=== PATIENT | male | born 1940 | race Caucasian/White ===

== ENCOUNTER 2022-06-27 18:42 | Emergency (ER) | payer MEDICARE, BC ==
[~2022-06-27] VITALS: Ht 162.6 cm; Wt 81.8 kg
[2022-06-27] VITALS (8 sets, daily range): BP systolic 134–168; BP diastolic 49–65; PULSE 71–100; TEMP 97.1–98.3
[2022-06-27 19:23] LABS: BASO % 0.3 % (0.0-2.0); EOS # 0.5 K/mm3 (0.0-0.7); EOS % 8.8 % (0.0-4.0); GRAN # 3.7 K/mm3 (1.4-6.5); GRAN % 60.3 % (42.2-75.2); INR 1.1 (0.8-3.0); LYMPH # 1.3 K/mm3 (1.2-3.4); LYMPH % 21.9 % (20.0-51.0); MEAN CELL VOLUME 93 fl (80.0-100.0); MEAN CORPUSCULAR HGB CONC 31 g/dl (33.0-37.0); MEAN PLATELET VOLUME 12.8 fl (7.4-10.4); MONO # 0.5 K/mm3 (0.1-0.6); PLATELET COUNT 103 K/mm3 (130-400); PROTHROMBIN TIME 12.1 SECONDS (9.7-12.8); RED BLOOD COUNT 2.06 M/mm3 (4.20-5.60); REDCELL DISTRIBUTION WIDTH-CV 14.4 % (11.5-14.5)
[2022-06-27 19:27] LABS: HEMATOCRIT 19.1 % (42.0-52.0); MEAN CORPUSCULAR HEMOGLOBIN 29 pg (27-31)
[2022-06-27 19:42] LABS: ALBUMIN 3.6 gm/dL (3.4-4.8); BILIRUBIN,TOTAL 0.2 mg/dL (0.2-1.2); CALCIUM 9.1 mg/dL (8.4-10.2); CREATININE, serum 0.99 mg/dL (0.72-1.25); POTASSIUM 4.6 mmol/L (3.5-4.5); TOTAL PROTEIN 6.5 gm/dL (6.2-8.1)
[2022-06-27 19:48] LABS: TROPONIN-I 0.018 ng/mL (0.00-0.033)
== END 2022-06-27 23:47 | disposition home or self-care (01) ==
LOC: COL.ER 18:42
PROVIDERS: Family Medicine
DX: D64.9 Anemia, unspecified (principal)
CPT/HCPCS: P9016

== ENCOUNTER 2022-07-05 10:12 | Outpatient (RCR) | payer MEDICARE, BC ==
[2022-07-05] VITALS (10 sets, daily range): BP systolic 135–152; BP diastolic 51–85; PULSE 64–80; TEMP 97.4–98.5
[2022-07-05] MEDS ORDERED: ZOCOR 40MG40 MG PO (12:24)
[2022-07-05] MEDS ORDERED: LASIX 40MG TABL40 MG PO (12:24)
[2022-07-05] MEDS ORDERED: TRESIBA FL200 UNIT/1 SQ (12:25)
[2022-07-05] MEDS ORDERED: INSULIN LI100 UNIT/2 SQ (12:26)
[2022-07-05] MEDS ORDERED: CYMBALTA 30MG30 MG PO (12:27)
[2022-07-05] MEDS ORDERED: PROSCAR 5MG5 MG PO (12:27)
[2022-07-05] MEDS ORDERED: BENICAR 20MG TA20 MG PO (12:27)
[2022-07-05] MEDS ORDERED: FLOMAX 0.40.4 MG/CAP PO (12:28)
[2022-07-05] MEDS ORDERED: ZYLOPRIM 300MG300 MG PO (12:28)
[2022-07-05] MEDS ORDERED: ARICEPT 5MG PO (12:29)
[2022-07-05] MEDS ORDERED: LYRICA200 MG PO (12:31)
== END 2022-07-05 16:23 ==
LOC: EUO 10:12
DX: D50.8 Other iron deficiency anemias (principal)
CPT/HCPCS: J7050; P9016

== ENCOUNTER 2022-08-15 10:59 | Outpatient (RCR) | payer MEDICARE, BC ==
[2022-08-15] VITALS (10 sets, daily range): BP systolic 123–155; BP diastolic 44–85; PULSE 70–89; TEMP 97–98.5
[~2022-08-15] VITALS: Ht 162.6 cm; Wt 84.0 kg
[~2022-08-15 10:59] MED LIST: ARICEPT 5MG PO; BENICAR 20MG TA20 MG PO; CYMBALTA 30MG30 MG PO; FLOMAX 0.40.4 MG/CAP PO; INSULIN LI100 UNIT/2 SQ; LASIX 40MG TABL40 MG PO; LYRICA200 MG PO; PROSCAR 5MG5 MG PO; TRESIBA FL200 UNIT/1 SQ; ZOCOR 40MG40 MG PO; ZYLOPRIM 300MG300 MG PO
[2022-08-15] MEDS ORDERED: TYLENOL 500MG500 MG PO (11:34)
[2022-08-15] MEDS ORDERED: CENTRUM SILVER1 TA2 PO (11:55)
--- NOTE | 2022-08-15 13:53 | NUR ---
Report from Stacie Mcgee.
== END 2022-08-15 17:12 ==
LOC: EUO 10:59
DX: D50.8 Other iron deficiency anemias (principal)
CPT/HCPCS: J7050; P9016

== ENCOUNTER 2022-11-15 09:49 | Day surgery (SDC) | payer MEDICARE, BC ==
[~2022-11-15] VITALS: Ht 162.6 cm; Wt 95.6 kg
[~2022-11-15 09:49] MED LIST changes: +CENTRUM SILVER1 TA2 PO; +TYLENOL 500MG500 MG PO
[2022-11-15 11:03] VITALS: BP 140/59; PULSE 79; TEMP 98.1
[2022-11-15 12:55] VITALS: BP 159/68; PULSE 81; TEMP 98.4
--- NOTE | 2022-11-15 12:55 | NUR ---
PATIENT AMBULATED TO THE CHAIR WITH STANDBY ASSIST. PATIENT ALERT AND ORIENTED, DENIES PAIN AND NAUSEA. BREATHING REGULAR AND UNLABORED. SEE CHART FOR VITAL SIGNS. NURSE HANDOFF COMPLETED IN ROOM. PATIENT TRIED WATER AND SALTINES, NO DYSPHAGIA. PATIENT ALSO HAD ORANGE JUICE. PAM, DAUGHTER, PRESENT IN ROOM. CALL LIGHT IN REACH. MET WITH PATIENT AND DAUGHTER TO DISCUSS PROCEDURE.
[2022-11-15 13:15] VITALS: BP 171/69; PULSE 76
[2022-11-15 13:24] VITALS: BP 169/70; PULSE 75
[2022-11-15 13:35] VITALS: BP 165/69; PULSE 79
--- NOTE | 2022-11-15 13:35 | NUR ---
PATIENT ALERT AND ORIENTED, DENIES PAIN AND NAUSEA. DISCHARGE TEACHING COMPLETED WITH PRINTED EDUCATION SENT HOME WITH PATIENT. PATIENT AND DAUGHTER PAM VERBALIZED UNDERSTANDING OF TEACHING. IV REMOVED. PATIENT DISCHARGED HOME WITH PAM TRANSPORT.
== END 2022-11-15 13:45 | disposition home or self-care (01) ==
LOC: SDCO 09:49
DX: D12.0 Benign neoplasm of cecum (principal); D50.9 Iron deficiency anemia, unspecified; Z86.16 Personal history of COVID-19; Z87.891 Personal history of nicotine dependence
CPT/HCPCS: J2704

== ENCOUNTER 2023-12-14 18:28 | Inpatient (IN) | payer MEDICARE, BC ==
[~2023-12-14] VITALS: Ht 162.6 cm; Wt 85.9 kg
[~2023-12-14 18:28] MED LIST changes: +ASPIRIN E.C. 8181 MG PO; +BENICAR5 MG PO; +HUMALOG PEN100 U/ML SQ; +PROVENTIL0.09 MG/A1 IH; +RT ADVAIR HFA 1112 G IH; +TRESIBA100 UNIT/1 SQ; +ZETIA 10MG TAB10 MG PO
[2023-12-14 19:00] LABS: BASO % 0.7 % (0.0-2.0); EOS # 0.4 K/mm3 (0.0-0.7); EOS % 5.7 % (0.0-4.0); GRAN # 4.4 K/mm3 (1.4-6.5); GRAN % 70.8 % (42.2-75.2); LYMPH # 0.9 K/mm3 (1.2-3.4); LYMPH % 15.3 % (20.0-51.0); MEAN CELL VOLUME 109 fl (80.0-100.0); MEAN CORPUSCULAR HGB CONC 32 g/dl (33.0-37.0); MEAN PLATELET VOLUME 11.7 fl (7.4-10.4); MONO # 0.4 K/mm3 (0.1-0.6); MONO % 6.7 % (1.7-9.3); PLATELET COUNT 117 K/mm3 (130-400); RED BLOOD COUNT 1.84 M/mm3 (4.20-5.60); REDCELL DISTRIBUTION WIDTH-CV 15.6 % (11.5-14.5)
[2023-12-14 19:05] LABS: HEMATOCRIT 20.1 % (42.0-52.0); HEMOGLOBIN 6.4 g/dl (13.5-18.0); MEAN CORPUSCULAR HEMOGLOBIN 35 pg (27-31)
[2023-12-14 19:21] LABS: ALBUMIN 3.3 gm/dL (3.4-4.8); BILIRUBIN,TOTAL 0.2 mg/dL (0.2-1.2); CALCIUM 8.9 mg/dL (8.4-10.2); CREATININE, serum 1.09 mg/dL (0.72-1.25); POTASSIUM 5.2 mmol/L (3.5-4.5); TOTAL PROTEIN 5.9 gm/dL (6.2-8.1)
[2023-12-14] MEDS ORDERED: Acetaminophen 325 MG TAB PO PRN (20:30)
[2023-12-14] MEDS ORDERED: Ondansetron 4 MG/2 ML VIAL IV PRN (20:30)
[2023-12-14] MEDS ORDERED: Pantoprazole 80 MG in NS 100 ML IV ONE (20:30)
[2023-12-14] MEDS ORDERED: Dextrose 50% Water 25 GM/50 ML SYRINGE IV PRN (20:45)
[2023-12-14] MEDS ORDERED: Dextrose (Glucose) 15 GM (4 x 3.75 GM) Chewable TABLET PACK PO PRN (20:45)
[2023-12-14] MEDS ORDERED: Glucagon 1 MG VIAL IM PRN (20:45)
[2023-12-14 21:00] VITALS: BP_SYST 134
[2023-12-14] MEDS ORDERED: Insulin Aspart (NovoLOG) SQ SCH (21:00)
[2023-12-14 21:22] VITALS: BP 156/54; PULSE 77; TEMP 97.9
[2023-12-14 21:36] VITALS: BP 167/58; PULSE 78; TEMP 97.8
[2023-12-14 21:39] VITALS: BP 161/60; PULSE 79; TEMP 97.9
[2023-12-14 22:37] VITALS: BP 183/56; PULSE 83; TEMP 97.7
[2023-12-14 22:46] VITALS: BP 188/58; PULSE 75; TEMP 97.9
[2023-12-15] VITALS (24 sets, daily range): BP systolic 134–176; BP diastolic 30–82; PULSE 73–92; TEMP 97.6–98.6
[2023-12-15] MEDS ORDERED: OSTEO-BI-FLEX 21 TAB PO (01:17)
--- NOTE | 2023-12-15 01:51 | NUR ---
Patient arrived to the floor at 0 from ED per cart with ED nurse Timothy, with ongoing blood transfusion that started at 2124 infusing well on LAC and on his right forearm with ongoing protonix, admission assessment and intake done, medrec reviewed. First unit of blood ended at 2244. Spoken to Shawn and made him aware that first unit was done and he wanted to transfuse the 2nd unit at midnight for 4 hours and give the lasix thereafter. Shawn was also aware that patient's BP is high and had 6 beats of vtach at 0026, no further orders received.
[2023-12-15] MEDS ORDERED: Furosemide 40 MG/4 ML VIAL IV ONE (04:00)
[2023-12-15 06:26] LABS: MEAN CORPUSCULAR HGB CONC 34 g/dl (33.0-37.0); MEAN PLATELET VOLUME 11.6 fl (7.4-10.4); PLATELET COUNT 119 K/mm3 (130-400); RED BLOOD COUNT 2.77 M/mm3 (4.20-5.60); REDCELL DISTRIBUTION WIDTH-CV 18.6 % (11.5-14.5)
[2023-12-15 06:41] LABS: HEMATOCRIT 26.4 % (42.0-52.0); HEMOGLOBIN 8.9 g/dl (13.5-18.0); MEAN CELL VOLUME 95 fl (80.0-100.0); MEAN CORPUSCULAR HEMOGLOBIN 32 pg (27-31)
[2023-12-15 06:46] LABS: ALBUMIN 3.4 gm/dL (3.4-4.8); BILIRUBIN,TOTAL 0.5 mg/dL (0.2-1.2); CALCIUM 9.6 mg/dL (8.4-10.2); CREATININE, serum 0.95 mg/dL (0.72-1.25); POTASSIUM 4.8 mmol/L (3.5-4.5); TOTAL PROTEIN 6.4 gm/dL (6.2-8.1)
[2023-12-15] MEDS ORDERED: Formoterol 20 MCG,Budesonide 0.5 MG IH SCH (07:00)
[2023-12-15] MEDS ORDERED: Ondansetron 4 MG/2 ML VIAL IV PRN ×2 (07:30→16:00)
--- NOTE | 2023-12-15 08:20 | NUR ---
pt a&ox3 resting in bed. meds given and assessment complete. vss and tele in place. pt reports some cramping in his abdomen, he has had less bloody stools this morning. scds to ble. INT to right forearm and left ac are patent. consent signed for upper GI scope this afternoon. pt denies needs at this time. call light in reach.
[2023-12-15] MEDS ORDERED: DULoxetine 30 MG CAP PO SCH (09:00)
[2023-12-15] MEDS ORDERED: PREGABALIN PO SCH (09:00)
--- NOTE | 2023-12-15 09:59 | NUR ---
criminal justice social worker met with pt to discuss discharge planning. Pt reports he lives alone in [place]. He sees Dr. Morataya and obtains medications from [facility] with some difficulty; he reports the cost has just increased, but he is able to get all the ones he needs. Pt reports his daughter, Viry [phone] is his contact and decision-maker. Pt confirms he does not have a DPOA-HC. SW discussed what it is and how it can beneficial as pt has 4 kids. He accepted a copy and reports, "I don't know what to do." SW advised he discuss with his daughter if she visits him. Pt reports he is independent with ADLS and uses no DME. SW informed that PT/OT are ordered on him and will assess his mobility. PT/OT Pending Discharge Plan: [facility]
[2023-12-15] MEDS ORDERED: NS 1,000 ML IV SCH (10:30)
[2023-12-15] MEDS ORDERED: ALDACTONE 25MG25 M1 PO (10:43)
[2023-12-15] MEDS ORDERED: PLAVIX 75MG TAB75 MG PO (10:43)
[2023-12-15] MEDS ORDERED: CRESTOR40 MG PO (10:44)
[2023-12-15] MEDS ORDERED: Allopurinol 300 MG TAB PO SCH (12:00)
--- NOTE | 2023-12-15 14:30 | NUR ---
D: Initial visit: Batch Roller Operator stopped by room on rounds. Pt was content and resting while watching tv. A: Pt would like communion. Batch Roller Operator encouraged the pt telling him that the yarsanism deacons would be around tomorrow to give communion. Pt appreciated the visit. P: Batch Roller Operator informed pt that if he needed anything else from the supervisor prop making area to let his nurse know. Batch Roller Operator will follow up as needed.
[2023-12-15] MEDS ORDERED: Lidocaine PF 2% (20 MG/ML) 5 ML VIAL ONE (15:25)
--- NOTE | 2023-12-15 15:29 | NUR ---
pt off floor for EGD
--- NOTE | 2023-12-15 16:15 | NUR ---
pt back on floor from procedure. pt a&ox3. vss. pt wanting water.
[2023-12-15] MEDS ORDERED: Ondansetron 4 MG/2 ML VIAL IV SCH (16:45)
[2023-12-15] MEDS ORDERED: PEG3350/Sod Sulf,Bicarb,Cl/KCl Oral Soln 4,000 ML Bottle PO SCH (17:30)
--- NOTE | 2023-12-15 20:00 | NUR ---
Assessment complete. A&Ox4. Denies nausea/shortness of breath/pain. VS stable-slighlty elevated BP-cards aware and will monitor. TELE reporting SR. SCDs on at this time. Currently doing bowel prep. Patient is concerned that he will not be able to drink all of the prep. Encouraged to keep drinking through tthe night. RIght AC/Left AC INT flush without difficulty. Plan of care discussed for this shift to inlcude meds/bowel prep/calling for questions/concerns. Verbalizes understanding. Call maxi bo. Will monitor.
[2023-12-15] MEDS ORDERED: Donepezil 5 MG TAB PO SCH (21:00)
[2023-12-15] MEDS ORDERED: Pantoprazole 40 MG in NS 10 ML IV SCH (21:00)
[2023-12-15] MEDS ORDERED: Atorvastatin 20 MG TAB PO SCH (21:00)
[2023-12-15] MEDS ORDERED: Finasteride 5 MG TAB PO SCH (21:00)
[2023-12-15] MEDS ORDERED: Simvastatin 40 MG **** subs to Atorvastatin 20 MG PO SCH (21:00)
[2023-12-15] MEDS ORDERED: Ezetimibe 10 MG TAB PO SCH (21:00)
[2023-12-16] VITALS (16 sets, daily range): BP systolic 147–176; BP diastolic 39–70; PULSE 63–97; TEMP 97.8–98.5
--- NOTE | 2023-12-16 00:11 | NUR ---
Patient up to bathroom at this time. Still has not had any stools but continues to drink prep slowly. Denies current needs. Call light in reach. Will monitor.
--- NOTE | 2023-12-16 05:24 | NUR ---
Patient has been trying to comlete bowel prep for colon today. Has taken in approx half the jug of prep. Stated on several occasions that he just couldnt take any more in. Has had several BMs-soft formed to loose. VS stable. TELE reporting SR. SCDs currently off due to frequent bathroom trips. No s/s of distress noted. Will monitor.
[2023-12-16 06:58] LABS: BASO % 0.5 % (0.0-2.0); EOS # 0.4 K/mm3 (0.0-0.7); EOS % 7.2 % (0.0-4.0); GRAN # 3.8 K/mm3 (1.4-6.5); GRAN % 62.6 % (42.2-75.2); LYMPH # 1.1 K/mm3 (1.2-3.4); LYMPH % 18.3 % (20.0-51.0); MEAN CELL VOLUME 96 fl (80.0-100.0); MEAN CORPUSCULAR HGB CONC 34 g/dl (33.0-37.0); MEAN PLATELET VOLUME 12.2 fl (7.4-10.4); MONO # 0.7 K/mm3 (0.1-0.6); MONO % 10.9 % (1.7-9.3); PLATELET COUNT 111 K/mm3 (130-400); RED BLOOD COUNT 2.77 M/mm3 (4.20-5.60)
--- NOTE | 2023-12-16 07:00 | NUR ---
Pt has only drank a small amount of bowel prep. I talked with the pt about the importance of the prep for the colonoscopy. Pt stated that he hasn't had anything solid to eat. Explained it wasn't because of that but to clean out his colon so that dr can visualize his colon. Pt did start to drink some of the prep. Discussed prep with [employer] student, Sita who is going to help encourage him.
[2023-12-16 07:03] LABS: HEMATOCRIT 26.5 % (42.0-52.0); HEMOGLOBIN 9.1 g/dl (13.5-18.0); MEAN CORPUSCULAR HEMOGLOBIN 33 pg (27-31)
[2023-12-16 07:14] LABS: CALCIUM 9.5 mg/dL (8.4-10.2); CHOLESTEROL RISK RATIO 2.8; CREATININE, serum 0.86 mg/dL (0.72-1.25)
--- NOTE | 2023-12-16 09:00 | NUR ---
Agree with Kale, student assessment
--- NOTE | 2023-12-16 09:50 | NUR ---
Pt done with drinking the prep. Pt has had several liquid stools. Still brown with some sediment
--- NOTE | 2023-12-16 12:00 | NUR ---
Pt continues to have liquid stools, minimal amount of sediment in stool, brown in color. Notified Endo nurseShena
--- NOTE | 2023-12-16 12:42 | NUR ---
Pt off the floor for colonoscopy
[2023-12-16] MEDS ORDERED: Lidocaine PF 2% (20 MG/ML) 5 ML VIAL ONE (12:49)
--- NOTE | 2023-12-16 15:01 | NUR ---
bilingual patient support caseworker notes pt has PT/OT pending on patient, but he left for a colonscopy so this could not be completed. Discharge Plan: [facility]
--- NOTE | 2023-12-16 20:36 | NUR ---
Patient assessed around 2019. Alert and oriented. Does have history of dementia, and reported he can be forgetful. High fall risk precautions in place. Denies having pain and discomfort. Peripheral INT to left AC and right AC. Denies SOB and dyspnea. LS CTA. HRR. Telemetry in place. BSA x 4. Abdomen soft and non-tender. No edema. Ambulated to bathroom, stand by assist. Urine clear and yellow. Voices no questions, needs, or concerns at this time. In bed with call light within reach. Bed alarm on.
[2023-12-17] VITALS (13 sets, daily range): BP systolic 136–181; BP diastolic 49–74; PULSE 73–94; TEMP 97.6–99.8
--- NOTE | 2023-12-17 05:26 | NUR ---
Patient complained of pain to legs once this shift, and given PRN Acetaminophen as requested, which was effective. Denies having pain and discomfort at this time. Voices no questions, needs, or concerns at this time. In bed with call light within reach. High fall risk precautions in place. Bed alarm on.
[2023-12-17 06:52] LABS: BASO % 0.5 % (0.0-2.0); EOS # 0.4 K/mm3 (0.0-0.7); GRAN # 4.1 K/mm3 (1.4-6.5); GRAN % 64.6 % (42.2-75.2); LYMPH # 1.1 K/mm3 (1.2-3.4); MEAN CELL VOLUME 98 fl (80.0-100.0); MEAN CORPUSCULAR HGB CONC 34 g/dl (33.0-37.0); MEAN PLATELET VOLUME 12.1 fl (7.4-10.4); MONO # 0.6 K/mm3 (0.1-0.6); MONO % 9.4 % (1.7-9.3); PLATELET COUNT 99 K/mm3 (130-400); RED BLOOD COUNT 2.53 M/mm3 (4.20-5.60); REDCELL DISTRIBUTION WIDTH-CV 18.3 % (11.5-14.5)
[2023-12-17 06:58] LABS: HEMATOCRIT 24.8 % (42.0-52.0); HEMOGLOBIN 8.3 g/dl (13.5-18.0); MEAN CORPUSCULAR HEMOGLOBIN 33 pg (27-31)
[2023-12-17 07:08] LABS: CALCIUM 8.9 mg/dL (8.4-10.2); CREATININE, serum 0.81 mg/dL (0.72-1.25); POTASSIUM 4.4 mmol/L (3.5-4.5)
[2023-12-17] MEDS ORDERED: Clopidogrel 75 MG TAB PO SCH (09:00)
--- NOTE | 2023-12-17 11:18 | NUR ---
wash worker notes PT saw patient and reports he is cleared to discharge home. Discharge Plan: home
[2023-12-17 13:04] LABS: HEMATOCRIT 28.1 % (42.0-52.0); HEMOGLOBIN 9.4 g/dl (13.5-18.0)
[2023-12-17] MEDS ORDERED: Furosemide 40 MG TAB PO SCH (16:09)
[2023-12-17] MEDS ORDERED: SUBS TO LOSARTAN PO SCH (16:14)
[2023-12-17] MEDS ORDERED: OLMESARTAN 10 MG PO SCH (16:14)
--- NOTE | 2023-12-17 16:15 | NUR ---
Notifed Dr Archer of pt increase in BP, new orders wrote
[2023-12-17] MEDS ORDERED: Losartan 25 MG TAB PO SCH (16:30)
[2023-12-17] MEDS ORDERED: Ferrous Sulfate 325 MG TAB PO SCH (17:00)
--- NOTE | 2023-12-17 20:40 | NUR ---
PT A&O LAYING IN BED. DENYING PAIN OR N/V. INT TO RIGHT & LEFT AC PATENT. PT DENYING FURTHER NEEDS. FALL PRECAUTIONS IN PLACE &CALL LIGHT IN REACH
[2023-12-18] VITALS (9 sets, daily range): BP systolic 126–171; BP diastolic 51–64; PULSE 74–94; TEMP 97.4–98.3
--- NOTE | 2023-12-18 06:10 | NUR ---
PT HAD UNEVENTFUL NIGHT. DENIES PAIN. LAYING IN BED WITH UNLABORED RESP. CALL LIGHT IN REACH & FALL PRECAUTIONS IN PLACE
[2023-12-18 06:47] LABS: BASO # 0.1 K/mm3 (0.0-0.2); BASO % 0.7 % (0.0-2.0); EOS # 0.6 K/mm3 (0.0-0.7); EOS % 8.6 % (0.0-4.0); GRAN # 4.3 K/mm3 (1.4-6.5); GRAN % 62.7 % (42.2-75.2); LYMPH # 1.2 K/mm3 (1.2-3.4); LYMPH % 17.4 % (20.0-51.0); MEAN CELL VOLUME 97 fl (80.0-100.0); MEAN CORPUSCULAR HGB CONC 33 g/dl (33.0-37.0); MEAN PLATELET VOLUME 12.1 fl (7.4-10.4); MONO # 0.7 K/mm3 (0.1-0.6); PLATELET COUNT 97 K/mm3 (130-400); RED BLOOD COUNT 2.64 M/mm3 (4.20-5.60); REDCELL DISTRIBUTION WIDTH-CV 17.7 % (11.5-14.5)
[2023-12-18 06:49] LABS: HEMATOCRIT 25.7 % (42.0-52.0); HEMOGLOBIN 8.5 g/dl (13.5-18.0); MEAN CORPUSCULAR HEMOGLOBIN 32 pg (27-31)
[2023-12-18 07:02] LABS: CALCIUM 9.2 mg/dL (8.4-10.2); CREATININE, serum 0.95 mg/dL (0.72-1.25); MAGNESIUM 1.8 mg/dL (1.6-2.6); POTASSIUM 4.3 mmol/L (3.5-4.5)
--- NOTE | 2023-12-18 08:15 | NUR ---
Tele notified of pt going in and out of afib. Dr Archer notified of this as well. Pt doing well at this time, no needs or complaints
[2023-12-18] MEDS ORDERED: Amiodarone 200 MG TAB PO SCH (10:18)
--- NOTE | 2023-12-18 10:30 | NUR ---
Pt doing okay. Assisted him up to the chair. Pt did go to the restroom and ambulated independently to the chair with standby assist. Pt not having any complaints of pain. He does report feeling tired, wants to sleep in his own bed. No other needs, I did order breakfast for him
[2023-12-18 12:47] LABS: HEMATOCRIT 30.2 % (42.0-52.0)
--- NOTE | 2023-12-18 13:00 | NUR ---
Pt continues to do well, no issues or complaints at this time. Did discuss new medication for rate control on his heart. Jose Guadalupe talked to him about getting a heart monitor
--- NOTE | 2023-12-18 13:11 | NUR ---
BEATRICE Student completed Medicare IM form with patient at bedside. BEATRICE Student provided patient with copy and placed original in patient's chart.
[2023-12-18] MEDS ORDERED: FERRO-TIME325 MG PO (13:36)
[2023-12-18] MEDS ORDERED: CORDARONE200 MG/TAB PO (13:44)
[2023-12-18] MEDS ORDERED: BENICAR5 MG PO (13:45)
[2023-12-18] MEDS ORDERED: PROTONIX 40MG T40 MG PO (13:47)
--- NOTE | 2023-12-18 15:17 | NUR ---
TOOK OVER CARE FOR THIS PATIENT, RECIEVED REPORT FROM NIELS Leo RN. NO NEW CHAGES FROM PREVIOUS ASSESSMEN. PATIENT WAITING ON HIS DAUGHTER TO PICK HIM UP TO [facility] TODAY.
--- NOTE | 2023-12-18 18:21 | NUR ---
ALL DISCHARGE INSRUCTIONS EXPLAINED AND ALL QUESTIONS ANSWERED, PT TAKEN HOME WITH DAUGHTER. TWO IVS REMOVED. PT ESCORTED OUT BY HOSPITAL STAFF TO PRIVATE VEHICLE.
[2023-12-25] MEDS ORDERED: Amiodarone 200 MG TAB PO SCH (21:00)
[2024-01-02] MEDS ORDERED: Amiodarone 200 MG TAB PO SCH (09:00)
== END 2023-12-18 17:15 | disposition home or self-care (01) | DRG 378 ==
LOC: COL.ER 18:28 → SURG 20:15
PROVIDERS: Hospitalist; Personal Emergency Response Attendant; Physician Assistant; ADMIT Internal Medicine
PROC: 0DB68ZX Excision of Stomach, Via Natural or Artificial Opening Endoscopic, Diagnostic (ICD-10-PCS; principal; 2023-12-14)
PROC: 0W3P8ZZ Control Bleeding in Gastrointestinal Tract, Via Natural or Artificial Opening Endoscopic (ICD-10-PCS; 2023-12-14)
DX: K31.811 Angiodysplasia of stomach and duodenum with bleeding (principal); D62 Acute posthemorrhagic anemia; K29.71 Gastritis, unspecified, with bleeding; K29.81 Duodenitis with bleeding; I25.10 Atherosclerotic heart disease of native coronary artery without angina pectoris; I10 Essential (primary) hypertension; E78.5 Hyperlipidemia, unspecified; F32.A Depression, unspecified; E87.5 Hyperkalemia; I48.0 Paroxysmal atrial fibrillation; E03.9 Hypothyroidism, unspecified; E11.9 Type 2 diabetes mellitus without complications; Z79.4 Long term (current) use of insulin; N40.0 Benign prostatic hyperplasia without lower urinary tract symptoms; M10.9 Gout, unspecified; F03.90 Unspecified dementia, unspecified severity, without behavioral disturbance, psychotic disturbance, mood disturbance, and anxiety
CPT/HCPCS: C9113; J1815; J1940; J2405; J2704; J2765; J7030; P9016

== ENCOUNTER 2024-01-08 19:16 | Inpatient (IN) | payer MEDICARE, BC ==
[~2024-01-08] VITALS: Ht 154.9 cm; Wt 91.0 kg
[~2024-01-08 19:16] MED LIST changes: +ALDACTONE 25MG25 M1 PO; +CORDARONE200 MG/TAB PO; +CRESTOR40 MG PO; +FERRO-TIME325 MG PO; +OSTEO-BI-FLEX 21 TAB PO; +PLAVIX 75MG TAB75 MG PO; +PROTONIX 40MG T40 MG PO
[2024-01-08] MEDS ORDERED: INSULIN LI100 UNIT/2 SQ (19:56)
[2024-01-08 20:00] VITALS: BP 180/67; PULSE 81; TEMP 98.2
[2024-01-08] MEDS ORDERED: ALDACTONE 25MG25 M1 PO (20:27)
[2024-01-08] MEDS ORDERED: FLONASEALLERGY NS (20:28)
--- NOTE | 2024-01-08 20:32 | NUR ---
pt arrived to room 324 at 1999. pt ambulated to bed and bathroom utilizing sba and steady gait. pt BLE noted to have pitting edema that started approximately one week ago. pt reports it does not interfere with his movement or gait. pt denies pain. admission, med rec, and physical assessment complete. fall precautions in place. call light in reach. all needs met at this time.
[2024-01-08 21:00] VITALS: BP_SYST 176
[2024-01-08] MEDS ORDERED: NS 1,000 ML IV ONE ×2 (21:15→23:45)
[2024-01-08] MEDS ORDERED: Pantoprazole 40 MG in NS 10 ML IV SCH (21:15)
[2024-01-08] MEDS ORDERED: Ondansetron 4 MG/2 ML VIAL IV PRN (21:15)
[2024-01-08] MEDS ORDERED: Acetaminophen 325 MG TAB PO PRN (21:15)
[2024-01-08] MEDS ORDERED: Dextrose (Glucose) 15 GM (4 x 3.75 GM) Chewable TABLET PACK PO PRN (21:30)
[2024-01-08] MEDS ORDERED: Glucagon 1 MG VIAL IM PRN (21:30)
[2024-01-08] MEDS ORDERED: Polyethylene Glycol 3350 119 GM BOTTLE PO SCH (21:30)
[2024-01-08] MEDS ORDERED: Dextrose 50% Water 25 GM/50 ML SYRINGE IV PRN (21:30)
[2024-01-08 21:42] LABS: MEAN CELL VOLUME 93 fl (80.0-100.0); MEAN CORPUSCULAR HGB CONC 34 g/dl (33.0-37.0); MEAN PLATELET VOLUME 12.1 fl (7.4-10.4); PLATELET COUNT 115 K/mm3 (130-400); RED BLOOD COUNT 2.06 M/mm3 (4.20-5.60); REDCELL DISTRIBUTION WIDTH-CV 16.5 % (11.5-14.5)
[2024-01-08 21:45] LABS: HEMATOCRIT 19.2 % (42.0-52.0); HEMOGLOBIN 6.5 g/dl (13.5-18.0); MEAN CORPUSCULAR HEMOGLOBIN 32 pg (27-31)
--- NOTE | 2024-01-08 21:45 | NUR ---
lab called critical value for hgb 6.5. updated OLIVIA Coe. new order for 2U PRBC.
[2024-01-08 21:57] LABS: ALBUMIN 3.2 gm/dL (3.4-4.8); BILIRUBIN,TOTAL 0.3 mg/dL (0.2-1.2); CALCIUM 9.3 mg/dL (8.4-10.2); CREATININE, serum 2.12 mg/dL (0.72-1.25); MAGNESIUM 2.2 mg/dL (1.6-2.6)
[2024-01-08 22:56] VITALS: BP 176/40; PULSE 73; TEMP 97.6
--- NOTE | 2024-01-08 23:02 | NUR ---
pt blood transfusion began at 2300. pt tolerating well so far.
[2024-01-08 23:14] VITALS: BP 183/47; PULSE 72; TEMP 98
[2024-01-08 23:28] VITALS: BP 181/49; PULSE 72; TEMP 97.6
--- NOTE | 2024-01-08 23:31 | NUR ---
pt tolerating transfusion well. no adverse reactions noted. pt denies dizziness or headaches. fall precautions in place. call light in reach. all needs met at this time.
[2024-01-08] MEDS ORDERED: Albuterol/Ipratropium 3 MG-0.5 MG/3 ML Neb Soln IH PRN (23:45)
[2024-01-08 23:59] VITALS: BP 173/48; PULSE 74; TEMP 97.9
[2024-01-09] VITALS (24 sets, daily range): BP systolic 154–203; BP diastolic 40–65; PULSE 62–86; TEMP 97.5–98.2
[2024-01-09] MEDS ORDERED: Insulin Lispro (HumaLOG) SQ SCH
[2024-01-09] MEDS ORDERED: Furosemide 40 MG/4 ML VIAL IV ONE (02:00)
--- NOTE | 2024-01-09 02:28 | NUR ---
pt first Unit finished at 0202. pt tolerated well without adverse reactions. second unit PRBC now started.
--- NOTE | 2024-01-09 04:36 | NUR ---
pt continues tolerating PRBC without issue. small amount of hard tissue noted above left elbow. pt reports it has been there for 30 years and his PCP is aware. iv placed just distal to lump.
--- NOTE | 2024-01-09 05:49 | NUR ---
pt second transfusion complete. no adverse reaction noted. pt tolerated well.
[2024-01-09 06:28] LABS: BASO % 0.6 % (0.0-2.0); EOS # 0.3 K/mm3 (0.0-0.7); EOS % 5.2 % (0.0-4.0); GRAN # 4.4 K/mm3 (1.4-6.5); GRAN % 66.9 % (42.2-75.2); LYMPH # 0.9 K/mm3 (1.2-3.4); LYMPH % 13.5 % (20.0-51.0); MEAN CELL VOLUME 92 fl (80.0-100.0); MEAN CORPUSCULAR HGB CONC 35 g/dl (33.0-37.0); MEAN PLATELET VOLUME 12.5 fl (7.4-10.4); MONO # 0.9 K/mm3 (0.1-0.6); PLATELET COUNT 113 K/mm3 (130-400); REDCELL DISTRIBUTION WIDTH-CV 16.5 % (11.5-14.5)
[2024-01-09 06:33] LABS: HEMATOCRIT 24.8 % (42.0-52.0); MEAN CORPUSCULAR HEMOGLOBIN 32 pg (27-31)
[2024-01-09 06:34] LABS: HEMOGLOBIN 8.6 g/dl (13.5-18.0)
[2024-01-09 06:49] LABS: CALCIUM 9.1 mg/dL (8.4-10.2); CREATININE, serum 1.91 mg/dL (0.72-1.25); POTASSIUM 4.7 mmol/L (3.5-4.5)
[2024-01-09] MEDS ORDERED: Formoterol 20 MCG,Budesonide 0.5 MG IH SCH (07:00)
--- NOTE | 2024-01-09 07:53 | NUR ---
called and voicemail left about elevated BP. Await return call
[2024-01-09] MEDS ORDERED: Ondansetron 4 MG/2 ML VIAL IV PRN (08:15)
[2024-01-09] MEDS ORDERED: hydrALAZINE 20 MG/ML 1 ML VIAL IV PRN ×2 (08:15→19:45)
--- NOTE | 2024-01-09 08:30 | NUR ---
notified of patient only having one dose miralax ordered and still having solid stool. Orders obtained, awaiting miralax and gatorade to give. Anesthesia aware of 1500 egd/colon Scheduled procedure with Sx.
[2024-01-09] MEDS ORDERED: Fluticasone Nasal 50 MCG/Spray 16 GM BOTTLE NS SCH (09:00)
[2024-01-09] MEDS ORDERED: Pregabalin 50 MG CAP PO SCH (09:00)
[2024-01-09] MEDS ORDERED: TRESIBA FL200 UNIT/1 SQ (10:19)
--- NOTE | 2024-01-09 11:14 | NUR ---
Patient up again to the bathroom, he has completed second dose of miralax and has been in the bathroom, stool remains solid, no blood noted. Patient reports colonoscopy a few weeks ago, still having residual and not being clear. Patient will not be NPO not that miralax completed. He reports minimal pain, just stomach aching. IVF. Edema noted. Reddness to legs patient reports as chronic. Will monitor.
[2024-01-09] MEDS ORDERED: LASIX 80MG TABL80 MG PO (11:23)
[2024-01-09] MEDS ORDERED: PROAIR HFA0.09 MG/AC IH (11:25)
[2024-01-09] MEDS ORDERED: CORDARONE200 MG/TAB PO (12:47)
--- NOTE | 2024-01-09 13:22 | NUR ---
Patient BP remains elevated. notifed. Orders obatined. Also discussed with pharmacicist.
[2024-01-09] MEDS ORDERED: hydrALAZINE 20 MG/ML 1 ML VIAL IV ONE (13:30)
--- NOTE | 2024-01-09 14:04 | NUR ---
Patient to endoscopy via cart with Isabel, report given, she is aware of hydralizine given and elevated BP. was also at bedside and aware. Patient up to the bathroom, liquid brown stools, Isabel nurse also aware.
--- NOTE | 2024-01-09 15:54 | NUR ---
silk worker attempted to meet with patient to discuss discharge planning. Patient was taken early to his procedure. BEATRICE Trejo attempted to meet with patient to discuss discharge planning but patient was still in his procedure.
[2024-01-09] MEDS ORDERED: Amiodarone 200 MG TAB PO SCH (17:00)
[2024-01-09] MEDS ORDERED: SUBS TO LOSARTAN PO SCH (17:21)
[2024-01-09] MEDS ORDERED: OLMESARTAN 10 MG PO SCH (17:21)
[2024-01-09] MEDS ORDERED: Losartan 25 MG TAB PO SCH (17:24)
--- NOTE | 2024-01-09 17:33 | NUR ---
Spoke with Evelyn Landry about patient and orders obtained. Patient SAAD continues to be elevated. medications as ordered
--- NOTE | 2024-01-09 19:19 | NUR ---
Patent resting in bed. He did well with dinner. Blood pressure slightly imporved after PO medication. Bedside report to Janene to resume cares
--- NOTE | 2024-01-09 20:46 | NUR ---
Pt assessment completed. A&Ox4, although patient is lethargic, unable to sustain a conversation and falling asleep after answerig a couple question. Had to wake him up a few times to perform his assessment. Medications given. Pt up to the bathroom. No pain or discomfort at this time. Fluids running per LAC peripheral line. BP 184/63 IV PRN Hydralazine given per emar. Belongings and call light are within reach.
[2024-01-09] MEDS ORDERED: Finasteride 5 MG TAB PO SCH (21:00)
[2024-01-09] MEDS ORDERED: Donepezil 5 MG TAB PO SCH (21:00)
[2024-01-09] MEDS ORDERED: Spironolactone 25 MG TAB PO SCH ×2 (21:00)
[2024-01-09] MEDS ORDERED: Ezetimibe 10 MG TAB PO SCH (21:00)
[2024-01-10] VITALS (14 sets, daily range): BP systolic 129–194; BP diastolic 51–78; PULSE 70–88; TEMP 97.9–98.4
[2024-01-10] MEDS ORDERED: Polyethylene Glycol 3350 119 GM BOTTLE PO SCH
[2024-01-10 06:14] LABS: BASO % 0.6 % (0.0-2.0); EOS # 0.2 K/mm3 (0.0-0.7); EOS % 3.4 % (0.0-4.0); GRAN # 5.2 K/mm3 (1.4-6.5); GRAN % 72.9 % (42.2-75.2); LYMPH # 0.7 K/mm3 (1.2-3.4); LYMPH % 9.6 % (20.0-51.0); MEAN CELL VOLUME 91 fl (80.0-100.0); MEAN CORPUSCULAR HGB CONC 34 g/dl (33.0-37.0); MEAN PLATELET VOLUME 12.9 fl (7.4-10.4); MONO # 0.9 K/mm3 (0.1-0.6); MONO % 12.7 % (1.7-9.3); PLATELET COUNT 114 K/mm3 (130-400); RED BLOOD COUNT 2.66 M/mm3 (4.20-5.60)
[2024-01-10 06:23] LABS: HEMATOCRIT 24.3 % (42.0-52.0); HEMOGLOBIN 8.3 g/dl (13.5-18.0); MEAN CORPUSCULAR HEMOGLOBIN 31 pg (27-31)
[2024-01-10 06:42] LABS: CALCIUM 8.1 mg/dL (8.4-10.2); CREATININE, serum 1.82 mg/dL (0.72-1.25); POTASSIUM 4.9 mmol/L (3.5-4.5)
--- NOTE | 2024-01-10 06:43 | NUR ---
Pt was up to the bathroom multiple times during this shift. Continue having dark stools. No longer on IV fluids. BP between 150s-160s. No pain or discomfort reported. Belongings and call light are within reach.
[2024-01-10] MEDS ORDERED: DULoxetine 30 MG CAP PO SCH (09:00)
--- NOTE | 2024-01-10 10:06 | NUR ---
Patient up to chair for breakfast. He tolerated without problems. Minimal pain, still some abdominal discomfort from the bowel prep with some loose stools. Int. Bp improved, Tele and monitor on. Vss on room air. Reports overall his Edema and Sob breath improved. Will monitor, awaiting hospitalist to round
--- NOTE | 2024-01-10 10:37 | NUR ---
SW met with patient to complete intake. Patient provides he lives in alone in [facility]. Next of kin is daughters Viry Blankenship [phone] and Brinda Mcgregor [phone]. Patient provides he is independent with ADL's, does not use DME, nor home health services at that time. PCP is Dr. Morataya and pharmacy is [facility]. Patient provides that he plans to return back to his home upon discharge. SW will continue to follow. Discharge plan: home
[2024-01-10] MEDS ORDERED: Allopurinol 300 MG TAB PO SCH (10:49)
[2024-01-10] MEDS ORDERED: Atorvastatin 40 MG TAB PO ONE (11:00)
[2024-01-10] MEDS ORDERED: Clopidogrel 75 MG TAB PO SCH (11:05)
--- NOTE | 2024-01-10 12:31 | NUR ---
Data: Hospital Rig Site Engineer requested On-Call Rig Site Engineer visit this Patient. Patient was walking around room, and then seated in his recliner. Patient described the condiiton that has him admitted to the hospital. Patient is hoping to discharge today. Assessment: Patient is concerned about unresolved/unexplain aspects of his condition. Patient is hopeful. Patient has strong eternal beliefs. Plan of Care: Rig Site Engineer provided supportive listening and prayer. Patient participated in prayer as well. Patient thanked Rig Site Engineer for the visit.
[2024-01-10] MEDS ORDERED: Metoprolol Tartrate 25 MG TAB PO SCH (15:43)
[2024-01-10] MEDS ORDERED: amLODIPine 10 MG TAB PO ONE (15:45)
[2024-01-10 16:24] LABS: HEMATOCRIT 23.7 % (42.0-52.0); HEMOGLOBIN 8.1 g/dl (13.5-18.0)
[2024-01-10] MEDS ORDERED: Carvedilol 6.25 MG TAB PO SCH (17:00)
[2024-01-10] MEDS ORDERED: Sucralfate 1 G TAB PO SCH (17:17)
--- NOTE | 2024-01-10 18:45 | NUR ---
Patient has done well today. Stand by assist in room. Eating without nausea. Insulin per elevated sugars. Blood pressure still varies and medications as ordered. Prn Hydralizine did help. Will report off to night nurse
--- NOTE | 2024-01-10 20:29 | NUR ---
Patient assessed at this time, see shift assessment, denies pain or discomfort, still with IV infusing well on LAC, denies further needs, call light and personal items within reach, will continue to monitor.
--- NOTE | 2024-01-10 22:21 | NUR ---
Called Shawn the PA and clarified about the blood transfusion order that Dr. Palacios had put in, received an order for repeat H&H stat and if hemoglobin is below 8 then will transfuse one unit of blood.
[2024-01-10 23:14] LABS: HEMATOCRIT 22.9 % (42.0-52.0); HEMOGLOBIN 8.1 g/dl (13.5-18.0)
--- NOTE | 2024-01-10 23:17 | NUR ---
Called Shawn, the PA and informed him that the repeat H&H is still 8.1. Shawn said, will hold the blood transfusion for now and check the H&H in am.
[2024-01-11] VITALS (18 sets, daily range): BP systolic 126–184; BP diastolic 37–61; PULSE 62–94; TEMP 97.5–98.1
--- NOTE | 2024-01-11 03:00 | NUR ---
Patient complained of indigestion, sprite given per request, blood pressure also high, hydralazine given.
[2024-01-11 07:57] LABS: BASO % 0.4 % (0.0-2.0); EOS # 0.2 K/mm3 (0.0-0.7); EOS % 2.4 % (0.0-4.0); GRAN # 5.3 K/mm3 (1.4-6.5); GRAN % 74.8 % (42.2-75.2); LYMPH # 0.8 K/mm3 (1.2-3.4); MEAN CELL VOLUME 93 fl (80.0-100.0); MEAN CORPUSCULAR HGB CONC 34 g/dl (33.0-37.0); MEAN PLATELET VOLUME 12.4 fl (7.4-10.4); MONO # 0.7 K/mm3 (0.1-0.6); MONO % 9.7 % (1.7-9.3); PLATELET COUNT 120 K/mm3 (130-400); RED BLOOD COUNT 2.55 M/mm3 (4.20-5.60); REDCELL DISTRIBUTION WIDTH-CV 16.6 % (11.5-14.5)
[2024-01-11 08:02] LABS: HEMATOCRIT 23.6 % (42.0-52.0); MEAN CORPUSCULAR HEMOGLOBIN 31 pg (27-31)
[2024-01-11 08:14] LABS: CALCIUM 8.1 mg/dL (8.4-10.2); CREATININE, serum 1.92 mg/dL (0.72-1.25); POTASSIUM 5.2 mmol/L (3.5-4.5)
[2024-01-11] MEDS ORDERED: PROTONIX 40MG T40 MG PO (09:31)
[2024-01-11] MEDS ORDERED: CARAFATE 1GM1 G PO (09:32)
[2024-01-11] MEDS ORDERED: NORVASC 10MG10 MG PO (09:36)
[2024-01-11] MEDS ORDERED: APRESOLINE 10MG10 MG PO ×2 (09:36→09:37)
[2024-01-11] MEDS ORDERED: hydrALAZINE 10 MG TAB PO ONE (09:45)
[2024-01-11] MEDS ORDERED: amLODIPine 10 MG TAB PO ONE (10:00)
[2024-01-11 14:29] LABS: HEMATOCRIT 28.5 % (42.0-52.0); HEMOGLOBIN 9.6 g/dl (13.5-18.0)
--- NOTE | 2024-01-11 14:57 | NUR ---
PATIENT RECEIVED DISCHARGE PAPERWORK, ACKWOWLEDGED UNDERSTANDING OF FOLLOW UP APPOINTMENTS AND NEWLY ADDEDED MEDICATIONS. PATIENT WILL HAVE WEEKLY HH CHECKS TO ASSESS FOR ACTIVE BLEEDING. PATIENT UNDERSTANDS. PATIENT IV DISCONTINUED PATIENT TELEMETRY DISCONTINUED PATIENT TRANSPORTED IN WHEELCHAIR WITH NURSING STAFF TO EMERGENCY DEPARTMENT ENTRANCE FOR DISCHARGE. SON IN LAW PICKED PATIENT UP. NO ISSUES.
== END 2024-01-11 14:45 | disposition home or self-care (01) | DRG 378 ==
LOC: SURG 19:16
PROVIDERS: Internal Medicine; Internal Medicine Gastroenterology; Physician Assistant; ADMIT Internal Medicine
PROC: 30233N1 Transfusion of Nonautologous Red Blood Cells into Peripheral Vein, Percutaneous Approach (ICD-10-PCS; 2024-01-08)
PROC: 0DJD8ZZ Inspection of Lower Intestinal Tract, Via Natural or Artificial Opening Endoscopic (ICD-10-PCS; principal; 2024-01-09 15:00)
PROC: 0DJ08ZZ Inspection of Upper Intestinal Tract, Via Natural or Artificial Opening Endoscopic (ICD-10-PCS; 2024-01-09 15:00)
DX: K92.2 Gastrointestinal hemorrhage, unspecified (principal); N17.9 Acute kidney failure, unspecified; I25.10 Atherosclerotic heart disease of native coronary artery without angina pectoris; I10 Essential (primary) hypertension; E78.5 Hyperlipidemia, unspecified; N40.0 Benign prostatic hyperplasia without lower urinary tract symptoms; K21.9 Gastro-esophageal reflux disease without esophagitis; F32.A Depression, unspecified; E11.9 Type 2 diabetes mellitus without complications; I48.0 Paroxysmal atrial fibrillation; M10.9 Gout, unspecified; D50.0 Iron deficiency anemia secondary to blood loss (chronic); J44.9 Chronic obstructive pulmonary disease, unspecified; Z95.5 Presence of coronary angioplasty implant and graft; Z79.4 Long term (current) use of insulin; Z79.899 Other long term (current) drug therapy; Z79.02 Long term (current) use of antithrombotics/antiplatelets; Z87.891 Personal history of nicotine dependence; Z88.4 Allergy status to anesthetic agent; Z88.5 Allergy status to narcotic agent; Z88.8 Allergy status to other drugs, medicaments and biological substances; Z23 Encounter for immunization
CPT/HCPCS: C9113; J0360; J1815; J1940; J2704; J7030; P9016